=== PATIENT | male | born 1980 | race American Indian/Alaskan Native ===

== ENCOUNTER 2017-02-28 14:20 | Emergency (ER) | payer SELFPAY ==
[2017-02-28 14:38] VITALS: BP 132/91
[2017-02-28 15:03] LABS: Basophils % (Auto) 0.2 % (0.0-1.8); Hematocrit 41.7 % (35.5-45.6); Hemoglobin 13.9 gm/dl (11.8-15.2); Mean Corpuscular HGB Conc 33 % (32-34); Mean Corpuscular Hemoglobin 28 pg (28-32); Mean Corpuscular Volume 84 fl (84-94); Platelet Count 159 K/mm3 (140-440); Red Blood Count 4.98 M/mm3 (3.65-5.03); Red Cell Distribution Width 13.4 % (13.2-15.2); White Blood Count 12.1 K/mm3 (4.5-11.0)
[2017-02-28 15:16] LABS: Alanine Aminotransferase 16 units/L (7-56); Albumin 4.3 g/dL (3.9-5); Alkaline Phosphatase 55 units/L (35-129); Anion Gap 24 mmol/L; BUN/Creatinine Ratio 7.85; Blood Urea Nitrogen 11 mg/dL (9-20); Calcium 8.8 mg/dL (8.4-10.2); Carbon Dioxide 21 mmol/L (22-30); Chloride 89.6 mmol/L (98-107); Glucose 112 mg/dL (75-100); Lipase 13 units/L (13-60); Sodium 132 mmol/L (137-145); Total Protein 8.8 g/dL (6.3-8.2)
[2017-02-28 15:53] LABS: Bacteria,Urine 1+ /HPF (Negative); Bilirubin,Urine NEG (Negative); Blood,Urine LG (Negative); Ketones,Urine TR mg/dL (Negative); Leukocyte Esterase,Urine NEG (Negative); Mucus,Urine FEW /HPF; Nitrite,Urine NEG (Negative); Urobilinogen,Urine < 2.0 mg/dL (<2.0)
[2017-02-28 15:54] LABS: Protein,Urine >500 mg/dL (Negative)
== END 2017-02-28 20:15 | disposition left against medical advice (07) ==
LOC: ED 14:20
DX: R11.2 Nausea with vomiting, unspecified (principal); R10.13 Epigastric pain; Z53.21 Procedure and treatment not carried out due to patient leaving prior to being seen by health care provider
CPT/HCPCS: 36415; 80053; 81001; 83690; 85025